=== PATIENT | female | born 1995 | race Caucasian/White ===

== ENCOUNTER 2025-09-14 23:48 | Emergency (ER) | payer BC ==
[~2025-09-14] VITALS: Ht 175.3 cm; Wt 59.0 kg
[2025-09-15 00:14] VITALS: O2SAT 98
[2025-09-15 02:13] VITALS: BP 135/84; PULSE 91; RESP 18; TEMP 36.9; O2SAT 98
[2025-09-15] MEDS: KETOROLAC 30MG/ML VIAL IM ONE (04:08)
== END 2025-09-15 04:10 | disposition left against medical advice (07) ==
LOC: ER 23:48
DX: H60.93 Unspecified otitis externa, bilateral (principal)
CPT/HCPCS: 99283; 81025; 96372; J1885